=== PATIENT | female | born 2005 | race Caucasian/White ===

== ENCOUNTER 2025-02-17 06:03 | Outpatient (REF) | payer BC, SELFPAY ==
--- NOTE | ~2025-02-17 | US_ITS ---
EXAMINATION: US PELVIS CLINICAL INFORMATION: Check IUD COMPARISON: None available. TECHNIQUE: Ultrasound of the pelvis is performed using both transabdominal and transvaginal transducers along with Doppler. Transvaginal imaging is performed due to inadequate visualization transabdominally. FINDINGS: Uterus: The uterus is anteverted and measures 6.1 x 2.8 x 4.4 cm. The endometrium is not well-visualized. There is an IUD in the uterus. The right arm of the IUD appears to be angled downwards for inferiorly within the endometrium. The uterus is smooth in contour and has normal myometrial echogenicity. No visible fibroid. Adnexa: Both ovaries are visualized. There is normal color flow to the adnexa. There is no ovarian torsion. There is no pelvic ascites or fluid collection. Right ovary measures 3.6 x 2 x 2.2 cm. Left ovary measures 2.8 x 2.1 x 2.2 cm. US/US pelvic and transvaginal IMPRESSION: The endometrium is not well-visualized. There is an IUD in the uterus. The right arm of the IUD appears to be angled downwards or inferiorly within the endometrium. Electronically signed by: Velia Hamlin MD 02/17/2025 01:49 PM EDT
--- OUTSIDE RECORDS SUMMARY | 2025-02-17 06:05 | XMS_ITS | Clinical Summary ---
Author Organization [facility] Address [address] [place] [address] Care Team Providers Care Police Detention Attendant Name Role Phone Nithya Hidalgo MD Primary Care Provider + [phone] Nithya Hidalgo MD Unavailable [phone] Allergies No known active allergies Medications Multiple Vitamins Tab 0 5 Active Tretinoin Microsphere (Retin-A Micro Pump) 0.08 % Gel 0 1 Active Clindamycin Phos-Benzoyl Perox (Onexton) 1.2-3.75 % Gel apply nightly to affected areas 1 1 2 Active Junel FE .10/10 1.5-30 MG-MCG per tablet TAKE 1 TABLET BY MOUTH ONCE A DAY DIRECTED 112 tablet 5 Active Active Problems Problem Noted Date Diagnosed Date Patent foramen ovale (HHS) 11/26/2023 Overview (11/26/2023): See 05/26/2005 Cardiology note Weight loss 01/17/2022 Overview (06/17/2023): Impression - [id number]: I have reviewed with Cata that her BMI has dropped from 31%ile to 11%ile with an actual weight loss of 5 lbs since July at an age when she should still be gaining weight due to increasing bone density etc. I am concerned that her quest to eat a healthy diet may be too extreme for the amount of exercise she is getting and have reviewed this with her. She denies any eating disordered behaviors . I would like to see her again in 3 months to make sure that her weight has stabilized. Impression - [id number]: Down 4 pounds in last half a year. Denies any restrictive eating habits or inducing vomiting, etc. ; She did join a gym in the beginning of the year. Of note, was seen previously for a weight check dur to weight loss at the visit prior to that, and her weight had gone back up.; Discussed making sure she's getting enough calories now that she's working out more. ; Cata will be away at school soon and agreed to go to health services there a couple of times in beginning of the year for a weight check and have them fax me the results. Acne 01/15/2020 Overview (06/17/2023): Impression - [id number]: Risks and benefits of going on the oral contraceptive pill were reviewed with test and her mother. They would like to proceed. Will prescribe Junel 1.10/10 Impression - [id number]: ontrolled with current regimen of OCP, onexton and retin A. Will continue to be managed by dermatology Vegetarian diet 01/01/2018 Overview (06/17/2023): Impression - [id number]: She reports that she has adequate protein intake on her diet with nuts, beans and tofu. Resolved Problems Problem Noted Date Diagnosed Date Resolved Date Cough 02/20/2022 12/19/2023 Encounter for immunization 01/14/2021 0 12/19/2023 Encounters Date Type Department Care Team Description 01/06/2025 Results Follow-Up [facility] [address] [place] [phone] Maddi Church MD LIPID PANEL WITH REFLEX TO DIRECT LDL, CBC INCLUDES DIFFERENTIAL AND PLATELET COUNT, IRON PROFILE (IRON/TIBC), SERUM, Additional followed-up results: 4 01/05/2025 Orders Only [address] [phone] Raquel Hogue DO 12/18/2024 8:20 AM EDT CPE - Comprehensive Physical Exam [address] [place] [phone] Raquel Hogue DO Routine history and physical examination of adult (Primary Dx); Encounter for behavioral health screening; Screening for depression; Need for lipid screening; Strict vegetarian diet; Low energy; Patent foramen ovale (HHS) from Last 3 Months Immunizations Immunization Administration Dates Next Due COVID-19, mRNA (Pfizer Pre F all 2022) Monovalent, 30 mcg/0.3 ml 05/05/2021,10/02/2020,09/07/2020 Covid-19, mRNA (Pfizer Comir rigoberto) Seasonal, 30 mcg/0.3 mL (12+) 04/28/2024 Covid-19, mRNA (Pfizer Pre F all 2022) Bivalent, 30 mcg/0.3 ml randi-sucrose (12+) dose 04/26/2022 DTAP-IPV 08/26/2009 DTaP 02/08/2006, 5,2004,07/20 HIB (PRP-T) 2004,2004,2004 HPV9 (Gardasil 9) 01/01/2018,01/01/2017 Hep A (adult) 10/10/2022 Hep A (pedi) 01/01/2018 Hep A - 01/01/2017 Hep B (adult) 2004,2004,2004 Hib (PRP-OMP) 11/23/2005 IPV 02/08/2006,2004,2004 Influenza,injectable,quad,Prsrv Fr 03/21,04/26/2022,01/28/2020,01/27,02/20/2019,02/01/2018 Influenza,live,intranasal,quad 01/26/2014 Influenza,split(incl.purifie d surface antigen) 04/11/2007,03/10/2006,05/19/2005,03/27 MMR 11/04/2009,06/16/2005 Meningococcal ACWY (Menactra) 01/14/2021, 016 Meningococcal B (Bexsero) 12/14/2022,10/19/2022 PCV-7 11/23/2005, 5,2004,08/03 PPD/TST (Tuberculin Skin Test) 10/01/2020,2020 State H1N1 Vaccine,injection 11/04/2009,03/24/20 09 Tdap 12/31/2015 Varicella 08/11/2008,10/25/2005 influenza,seasonal,trivalent ,PF (Fluzone, Fluarix, Flulaval) 04/28/2024 Family History Medical History Relation Name Comments bladder cancer Sister Relation Name Status Comments Sister Social History Tobacco Use Types Packs/Day Years Used Date Smoking Tobacco: Unknown Tobacco Cessation:Counseling Given: Not Answered Comments:Smoking Status:No current tobacco use PHQ-2 Answer Date Recorded PHQ-2 Score 0 12/18/2024 PHQ-9 Answer Date Recorded Patient Health Questionnaire-9 Score 0 12/18/2024 Comments Unknown Sex and Gender Information Value Date Recorded Sex Assigned at Female 12/19/2023 12:28 PM EDT Legal Sex Female 3:31 PM EDT Gender Identity Female 12/19/2023 12:28 PM EDT Sexual Orientation Straight 12/19/2023 12 :28 PM EDT Last Filed Vital Signs Vital Sign Reading Time Taken Comments Blood Pressure 106/68 12/18/2024 8:35 AM EDT Pulse 88 12/18/2024 8:35 AM EDT Temperature 36.6 C (97.8 F) 12/19/2023 12:29 PM EDT Respiratory Rate 18 12/18/2024 8:35 AM EDT Oxygen Saturation 98% 12/19/2023 12:29 PM EDT Inhaled Oxygen Concentration - - Weight 48.8 kg (107 lb 9.6 oz) 12/18/2024 8:35 A M EDT Height 160.7 cm (5' 3.25 ) 12/18/2024 8:35 AM ED T Body Mass Index 18.91 12/18/2024 8:35 AM EDT Plan of Treatment Upcoming Encounters Date Type Department Care Team (Late st Contact Info) Description 12/21/2025 8:40 AM EDT CPE - Comprehensive Physical Exam [facility] [address] [phone] Nithya Hidalgo MD [address] [place] [address] 21yr Health Maintenance Due Date Last Done Comments Hepatitis C Screening 2004 Chlamydia 12/18/2024 12/19/2023, 07/2022, 01/14/2021, Additional history exists COVID-19 Vaccine ( season) 2025 04/28/2024, 04/26/2022, 05/05/2021, Additional history exists Influenza (#1) 2025 04/28/2024, 12/2022, 04/26/2022, Additional history exists DTaP/Tdap/Td (7 - Td or Tdap) 12/30/2025 12/31/2015, 08/26/2009, 02/08/2006, Additional history exists Zoster (Shingrix) (1 of 2) 2054 08/11/2008, Hep B Completed 2004, 11/2004, 2004 Hib Completed 11/23/2005, 06/2004, 2004, Additional history exists Pneumococcal Aged Out 11/23/2005, 06/2004, 2004, Additional history exists No longer eligible based on patient's age to complete this topic Varicella Completed 08/11/2008, 10/25/2005 Polio (IPV/OPV) Completed 08/26/2009, 01/13, 2004, Additional history exists MMR Completed 11/04/2009, 06/16/2005 HPV Vaccine Completed 01/01/2018, 01/01/2017 PPD Discontinued 10/01/2020, 09/12, 09/29/2020 Meningococcal ACWY Completed 01/14/2021, 12/31/2015 Hep A Completed 10/10/2022, 12/13, 01/01/2017 Meningococcal B Completed 12/14/2022, 10/19/2022 Physical Discontinued 12/18/2024, 11/13, 12/19/2023, Additional history exists LDL Cholesterol Discontinued 01/05/2025, 01/10/2019 Procedures * Due to [place] state law, this organization might not be sharing negative HIV tests. Procedure Name Priority Date/Time Associated Diagnosis Comments VITAMIN B12 (CYANOCOBALAMIN), SERUM Routine 01/05/2025 8:32 AM EDT Strict vegetarian diet Low energy VITAMIN D, 25-HYDROXY, TOTAL, IMMUNOASSAY Routine 01/05/2025 8:32 AM EDT Strict vegetarian diet Low energy THYROID STIMULATING HORMONE (TSH) WITH FREE T4 REFLEX, SERUM Routine 01/05/2025 8:32 AM EDT Low energy FERRITIN Routine 01/05/2025 8:32 AM EDT Strict vegetarian diet Low energy IRON PROFILE (IRON/TIBC), SERUM Routine 01/05/2025 8:32 AM EDT Strict vegetarian diet Low energy CBC INCLUDES DIFFERENTIAL AND PLATELET COUNT Routine 01/05/2025 8:32 AM EDT Strict vegetarian diet Low energy LIPID PANEL WITH REFLEX TO DIRECT LDL Routine 01/05/2025 8:32 AM EDT Need for lipid screening BRIEF EMOTIONAL/BEHAVIORAL STANDARD ASSESSMENT (EG, DEPRESSION, ADHD SCALE), W/ SCORING/DOCUMENT Routine 12/18/2024 8:46 AM EDT Encounter for behavioral health screening Screening for depression INFECTIOUS AGENT, NUCLEIC ACID (DNA/RNA); CHLAMYDIA TRACHOMATIS, AMPLIFIED PROBE Routine 12/19/2023 1:10 PM EDT Encounter for screening for infections with predominantly sexual mode of transmission PPD SKIN TEST Routine 10/01/2020 8:52 AM EDT from Last 3 Months or Most Recently Relevant to Health Maintenance Results * Due to [place] state law, this organization might not be sharing negative HIV tests. * CBC INCLUDES DIFFERENTIAL AND PLATELET COUNT (01/05/2025 8:32 AM EDT) WBC 5.2 3.6 - 11.0 K/uL [facility] RBC 4.1 3.8 - 5.2 M/uL [facility] Hemoglobin 12.9 11.5 - 15.5 g/dL [facility] Hematocrit 39.5 35.0 - 47.0 % [facility] MCV 96 80 - 100 fL [facility] MCH 31 27 - 32 pg [facility] MCHC 33 31 - 35 g/dl [facility] RDW 12.3 12.0 - 16.1 % [facility] MPV 12.6 9.0 - 13.0 fL [facility] PLT 235 150 - 450 K/uL [facility] Neutrophils % 50.5 % [facility] Lymphocytes % 35.6 % [facility] Monocytes % 9.6 % [facility] Eosinophils % 3.1 % [facility] Basophils % 1.0 % [facility] Neutrophils # 2.62 1.50 - 7.80 K/uL [facility] Lymphocytes # 1.85 0.80 - 4.50 K/uL [facility] Monocytes # 0.50 0.20 - 1.00 K/uL [facility] Erythrocytes.nuc leated/100 leukocytes 0.0 0.0 - 1.0 /100WBC [facility] Erythrocytes.nuc leated 0.00 K/uL [facility] 01/05/2025 8:32 AM EDT 01/05/2025 7:37 PM EDT Narrative [facility] - 01/05/2025 8:38 PM EDT Testing performed at [facility], [address] [place] [address], , Benefits Advisor: Rocio Long MD CL#[id number] us Raquel Hogue DO LAB SAME DAY RESULT Final Re sult [facility] [address] [place] [address]. [place] [address], * THYROID STIMULATING HORMONE (TSH) WITH FREE T4 REFLEX, SERUM (01/05/2025 8:32 AM EDT) Pathologist [facility] TSH (Thyrotropin) 1.13 0.50 - 4.80 uIU/ml [facility] 01/05/2025 8:32 AM EDT 01/05/2025 7:37 PM EDT Narrative [facility] - 01/05/2025 8:58 PM EDT Testing performed at [facility], [address] [place] [address], , Benefits Advisor: Rocio Long MD CL#[id number] [facility] Final Result Performing Organization Address [facility] de Phone Number [facility] [address] [place] [address], * IRON PROFILE (IRON/TIBC), SERUM (01/05/2025 8:32 AM EDT) Iron 112 30 - 160 ug/dL [facility] Iron Binding Capacity, Unsaturated 261 110 - 370 ug/dL [facility] Iron binding capacity 373 228 - 428 ug/dl [facility] Iron saturation 30 20 - 55 %sat [facility] 01/05/2025 8:32 AM EDT 01/05/2025 7:37 PM EDT Narrative [facility] - 01/05/2025 8:58 PM EDT Testing performed at [facility], [address] [place] [address], , Benefits Advisor: Rocio Long MD CL#[id number] Raquel Hogue LABORATORY Final Result Performing Organization Address [facility] Co de Phone Number [facility] [address] [place] [address], * FERRITIN (01/05/2025 8:32 AM EDT) Ferritin 53 13 - 150 ng/ml [facility] 01/05/2025 8:32 AM EDT 01/05/2025 7:37 PM EDT Narrative [facility] - 01/05/2025 9:02 PM EDT Testing performed at [facility], [address] [place] [address], , Benefits Advisor: Rocio Long MD CL#[id number] Raquelcara Hogue LABORATORY Final Result Performing Organization Address [facility] Co de Phone Number [facility] [address] [place] [address], * VITAMIN B12 (CYANOCOBALAMIN), SERUM (01/05/2025 8:32 AM EDT) Vitamin B12 (Cobalamins) 306 232 - 1,245 pg/ml [facility] 01/05/2025 8:32 AM EDT 01/05/2025 7:37 PM EDT Narrative [facility] - 01/05/2025 8:58 PM EDT Testing performed at [facility], [address] [place] [address], , Benefits Advisor: Rocio Long MD CL#[id number] Raquel [facility] LABORATORY Final Result Performing Organization Address [facility] Co de Phone Number [facility] [address] [place] [address], * VITAMIN D, 25-HYDROXY, TOTAL, IMMUNOASSAY (01/05/2025 8:32 AM EDT) Vitamin D, 25-OH, Total 32.5 30.0 - 100.0 ng/mL [facility] Comment: Reference Table <20 Deficient 20-30 Insufficient >30 Sufficient >150 Toxic 01/05/2025 8:32 AM EDT 01/05/2025 7:37 PM EDT Narrative [facility] - 01/05/2025 9:16 PM EDT Testing performed at [facility], [address] [place] [address], , Benefits Advisor: Rocio Long MD CL#[id number] Raquel Hogue DO LABORATORY Final Result Performing Organization Address [facility] Co de Phone Number [facility] [address] [place] [address], * (ABNORMAL) LIPID PANEL WITH REFLEX TO DIRECT LDL (01/05/2025 8:32 AM EDT) Cholesterol 174 0 - 199 mg/dL [facility] Triglyceride 117 0 - 150 mg/dL [facility] VLDL Cholesterol 23 5 - 40 mg/dL [facility] HDL Cholesterol 50 50 - 80 mg/dL [facility] LDL Cholesterol 101(H) 0 - 100 mg/dL [facility] Cholesterol Non-HDL 124 0 - 130 mg/dl [facility] CHOL/HDL Ratio 3.5 [facility] 01/05/2025 8:32 AM EDT 01/05/2025 7:37 PM EDT Narrative [facility] - 01/05/2025 8:58 PM EDT FASTING: YES Testing performed at [facility], [address] [place] [address], , Benefits Advisor: Rocio Long MD CL#[id number] Raquel Hogue DO LABORATORY Final Result Performing Organization Address [facility] de Phone Number [facility] [address] [place] [address], * CHLAMYDIA TRACHOMATIS/N. GONORRHOEAE (GC) RNA, TMA (URINE) (12/19/2023 1:10 PM EDT) Pathologist [facility] Chlamydia trachomatis rRNA NOT DETECTED NOT DETECTED [facility] Neisseria Gonorrhoeae rRNA NOT DETECTED NOT DETECTED [facility] 12/19/2023 1:10 PM EDT 12/19/2023 8:10 PM EDT Narrative [facility] - 12/20/2023 8:15 AM EDT Track Order?->No Release result to patient->Immediate Testing Performed at: [facility], [address] [place] [address], , Benefits Advisor: Rocio Long MD CL#[id number] Nithya Hidalgo MD LABORATORY Final Result [facility] [address] [place] [address], * PPD SKIN TEST (10/01/2020 8:52 AM EDT) # OF MM INDURATION (NOT REDNESS) negative PHCT CONVERSIONS 10/01/2020 8:52 AM EDT us Janeth Brady PROCEDURES Final Result PHCT CONVERSIONS from Last 3 Months or Most Recently Relevant to Health Maintenance Insurance PPO Care Teams Police Detention Attendant Relationship Specialty Start Date End Date Nithya Hidalgo MD [address] [place] [address] PCP - General 12/18/22 Nithya Hidalgo MD [address] [place] [address] PCP - Backup PCP Pediatrics 06/14/23
--- OUTSIDE RECORDS SUMMARY | 2025-02-17 06:05 | XMS_ITS | Encounter Summary ---
Author Organization [facility] Address [address] [place] [address] Care Team Providers Care Transportation Design Engineer Name Role Phone Nithya Hidalgo MD Primary Care Provider [phone] Nithya Hidalgo MD Unavailable [phone] Encounter Details Date Type Department Care Team (Late st Contact Info) Description 01/05/2025 Orders Only [address] [phone] Raquel Hogue DO [address] [place] [address], [address] [place] [phone] Social History Tobacco Use Types Packs/Day Years Used Date Smoking Tobacco: Unknown Comments:Smoking Status:No c urrent tobacco use PHQ-2 Answer Date Recorded PHQ-2 Score 0 12/18/2024 PHQ-9 Answer Date Recorded Patient Health Questionnaire-9 Score 0 12/18/2024 Comments Unknown Sex and Gender Information Value Date Recorded Sex Assigned at Female 12/19/2023 12:28 PM EDT Legal Sex Female 3:31 PM EDT Gender Identity Female 12/19/2023 12:28 PM EDT Sexual Orientation Straight 12/19/2023 12 :28 PM EDT documented as of this encounter Plan of Treatment Upcoming Encounters Date Type Department Care Team (Late st Contact Info) Description 12/21/2025 8:40 AM EDT CPE - Comprehensive Physical Exam [address] [place] [phone] Nithya Hidalgo MD [address] [address] 21yr documented as of this encounter Procedures * Due to [place] [employer] law, this organization might not be sharing negative HIV tests. Procedure Name Priority Date/Time Associated Diagnosis Comments CBC INCLUDES DIFFERENTIAL AND PLATELET COUNT Routine 01/05/2025 8:32 AM EDT Strict vegetarian diet Low energy THYROID STIMULATING HORMONE (TSH) WITH FREE T4 REFLEX, SERUM Routine 01/05/2025 8:32 AM EDT Low energy IRON PROFILE (IRON/TIBC), SERUM Routine 01/05/2025 8:32 AM EDT Strict vegetarian diet Low energy FERRITIN Routine 01/05/2025 8:32 AM EDT Strict vegetarian diet Low energy VITAMIN B12 (CYANOCOBALAMIN), SERUM Routine 01/05/2025 8:32 AM EDT Strict vegetarian diet Low energy VITAMIN D, 25-HYDROXY, TOTAL, IMMUNOASSAY Routine 01/05/2025 8:32 AM EDT Strict vegetarian diet Low energy LIPID PANEL WITH REFLEX TO DIRECT LDL Routine 01/05/2025 8:32 AM EDT Need for lipid screening documented in this encounter Results * Due to [place] [employer] law, this organization might not be sharing negative HIV tests. * VITAMIN B12 (CYANOCOBALAMIN), SERUM (01/05/2025 8:32 AM EDT) Vitamin B12 (Cobalamins) 306 232 - 1,245 pg/ml [facility] 01/05/2025 8:32 AM EDT 01/05/2025 7:37 PM EDT Narrative [facility] - 01/05/2025 8:58 PM EDT Testing performed at [facility], [address] [place] [address], , Oracle Technical Architect: Rocio Long MD CL#[id number] Raquel Hogue LABORATORY Final Result Performing Organization Address [facility] Co de Phone Number [facility] [address] [place] [address], * VITAMIN D, 25-HYDROXY, TOTAL, IMMUNOASSAY (01/05/2025 8:32 AM EDT) Vitamin D, 25-OH, Total 32.5 30.0 - 100.0 ng/mL [facility] Comment: Reference Table <20 Deficient 20-30 Insufficient >30 Sufficient >150 Toxic 01/05/2025 8:32 AM EDT 01/05/2025 7:37 PM EDT Narrative [facility] - 01/05/2025 9:16 PM EDT Testing performed at [facility], [address] [place] [address], , Oracle Technical Architect: Rocio Long MD CL#[id number] Raquel Foster LABORATORY Final Result Performing Organization Address [facility] de Phone Number [facility] [address] [place] [address], * THYROID STIMULATING HORMONE (TSH) WITH FREE T4 REFLEX, SERUM (01/05/2025 8:32 AM EDT) TSH (Thyrotropin) 1.13 0.50 - 4.80 uIU/ml [facility] 01/05/2025 8:32 AM EDT 01/05/2025 7:37 PM EDT Narrative [facility] - 01/05/2025 8:58 PM EDT Testing performed at [facility], [address] [place] [address], , Oracle Technical Architect: Rocio Long MD CL#[id number] Raquel Foster LABORATORY Final Result Performing Organization Address [facility] Co de Phone Number [facility] [address] [place] [address], * FERRITIN (01/05/2025 8:32 AM EDT) [facility] Ferritin 53 13 - 150 ng/ml [facility] 01/05/2025 8:32 AM EDT 01/05/2025 7:37 PM EDT Narrative [facility] - 01/05/2025 9:02 PM EDT Testing performed at [facility], [address] [place] [address], , Oracle Technical Architect: Rocio Long MD CL#[id number] Raquelnicol Hogue DO LABORATORY Final Result Performing Organization Address [facility] Co de Phone Number [facility] [address] [place] [address], * IRON PROFILE (IRON/TIBC), SERUM (01/05/2025 8:32 AM EDT) [facility] Iron 112 30 - 160 ug/dL [facility] Iron Binding Capacity, Unsaturated 261 110 - 370 ug/dL [facility] Iron binding capacity 373 228 - 428 ug/dl [facility] Iron saturation 30 20 - 55 %sat [facility] 01/05/2025 8:32 AM EDT 01/05/2025 7:37 PM EDT Narrative [facility] - 01/05/2025 8:58 PM EDT Testing performed at [facility], [address] [place] [address], , Oracle Technical Architect: Rocio Long MD CL#[id number] Raquel Hogue DO LABORATORY Final Result Performing Organization Address [facility] Co de Phone Number [facility] [address] [place] [address], * CBC INCLUDES DIFFERENTIAL AND PLATELET COUNT (01/05/2025 8:32 AM EDT) [facility] WBC 5.2 3.6 - 11.0 K/uL [facility] RBC 4.1 3.8 - 5.2 M/uL [facility] Hemoglobin 12.9 11.5 - 15.5 g/dL [facility] Hematocrit 39.5 35.0 - 47.0 % [facility] MCV 96 80 - 100 fL [facility] MCH 31 27 - 32 pg [facility] MCHC 33 31 - 35 g/dl [facility] RDW 12.3 12.0 - 16.1 % [facility] MPV 12.6 9.0 - 13.0 fL [facility] PLT 235 150 - 450 K/uL [facility] Neutrophils % 50.5 % [facility] Lymphocytes % 35.6 % [facility] Monocytes % 9.6 % [facility] Eosinophils % 3.1 % [facility] Basophils % 1.0 % [facility] Neutrophils # 2.62 1.50 - 7.80 K/uL [facility] Lymphocytes # 1.85 0.80 - 4.50 K/uL [facility] Monocytes # 0.50 0.20 - 1.00 K/uL [facility] Erythrocytes.nuc leated/100 leukocytes 0.0 0.0 - 1.0 /100WBC [facility] Erythrocytes.nuc leated 0.00 K/uL [facility] 01/05/2025 8:32 AM EDT 01/05/2025 7:37 PM EDT Narrative [facility] - 01/05/2025 8:38 PM EDT Testing performed at [facility], [address] [place] [address], , Oracle Technical Architect: Rocio Long MD CL#[id number] us Raquel Hogue DO LAB SAME DAY RESULT Final Re sult [facility] [address] [place] [address]. [place] [address], * (ABNORMAL) LIPID PANEL WITH REFLEX TO DIRECT LDL (01/05/2025 8:32 AM EDT) Cholesterol 174 0 - 199 mg/dL [facility] Triglyceride 117 0 - 150 mg/dL [facility] VLDL Cholesterol 23 5 - 40 mg/dL [facility] HDL Cholesterol 50 50 - 80 mg/dL [facility] LDL Cholesterol 101(H) 0 - 100 mg/dL [facility] Cholesterol Non-HDL 124 0 - 130 mg/dl [facility] CHOL/HDL Ratio 3.[address] [facility] 01/05/2025 8:32 AM EDT 01/05/2025 7:37 PM EDT Narrative [facility] - 01/05/2025 8:58 PM EDT FASTING: YES Testing performed at [facility], [address] [place] [address], , Oracle Technical Architect: Rocio Long MD CL#[id number] us Raquel Hogue DO LABORATORY Final Result [facility] [address] [place] [address]. [place] [address], documented in this encounter Visit Diagnoses Diagnosis Need for lipid screening Screening for lipoid disorders Strict vegetarian diet Low energy documented in this encounter Care Teams Transportation Design Engineer Relationship Specialty Start Date End Date Nithya Hidalgo MD [address] [place] [address] PCP - General 12/18/22 Nithya Hidalgo MD [address] [place] [address] PCP - Backup PCP Pediatrics 06/14/23 documented as of this encounter
--- OUTSIDE RECORDS SUMMARY | 2025-02-17 06:05 | XMS_ITS | Encounter Summary ---
Author Organization [facility] Address [address] [place] [address] Care Team Providers Care Storeroom Clerk Name Role Phone Janeth Brady MD Primary Care Provider [phone] Encounter Details Date Type Department Care Team (Late st Contact Info) Description 06/18/[address] [place] [phone] Margarito Scott MD [address] [place] [address] Encounter for laboratory testing for COVID-19 virus Social History Tobacco Use Types Packs/Day Years Used Date Smoking Tobacco: Never Assessed Comments Unknown Sex and Gender Information Value Date Recorded Sex Assigned at Not on file Legal Sex Female 1:41 PM EDT Gender Identity Not on file Sexual Orientation Not on file documented as of this encounter Plan of Treatment Not on file documented as of this encounter Procedures Procedure Name Priority Date/Time Associated Diagnosis Comments COVID-19 (SARS-COV-2) - SEMA4 LAB Routine 06/18/2020 10:28 AM EST Encounter for laboratory testing for COVID-19 virus [ICD-10-CM] documented in this encounter Results * (ABNORMAL) COVID-19 (SARS-COV-2) (SEMA4) (06/18/2020 10:28 AM EST) COVID-19 RT-PCR DETECTED( A) Not-Detec huy 06/19/2020 8:14 PM EST JADA OBANDO Comment:Interpretation: The viral RNA was detected, consistent with the diagnosis of COVID-19. Correlation with clinical findings is highly recommended.Final report signed by Reed Sheppard, Ph.D., Laboratory DirectorTests performed at [facility] Nasopharyngeal swab / Unknown 06/18/2020 10:28 AM EST 06/18/2020 10:28 AM EST Narrative JADA OBANDO - 06/19/2020 8:14 PM EST Performed by [facility] [address] [place] [address], CLIA# [id number] and [place] License# [id number] us Margarito Scott MD MICROBIOLOGY - GENERAL ORDER LINNETTE Final Result JADA OBANDO documented in this encounter Visit Diagnoses Diagnosis Encounter for laboratory testing for COVID-19 virus documented in this encounter Care Teams Storeroom Clerk Relationship Specialty Start Date End Date Janeth Brady MD PCP - General Pediatric, General 08/04/22 documented as of this encounter
--- OUTSIDE RECORDS SUMMARY | 2025-02-17 06:05 | XMS_ITS | Clinical Summary ---
Author Organization [address] Address [address] [place] [phone] Care Team Providers Care Elevator Mechanic Name Role Phone Janeth Brady MD Primary Care Provider [phone] Allergies No known active allergies Medications BLISOVI FE 1.5/30, 28, 1.5 mg-30 mcg (21)/75 mg (7) tablet TK 1 T PO D UTD 0 Active tretinoin microspheres 0.08 % GlwPIndications: Acne vulgaris Use large pea sized amount to entire face QHS as tolerated. 50 g 3 3 Active clindamycin-harry oyl peroxide (ONEXTON) 1.2 %(1 % base) -3.75 % GelIndications:A cne vulgaris Apply thin layer to face QAM 50 g 6 4 Active tazarotene (ARAZLO) 0.045 % LotnIndications: Acne vulgaris Apply 1 Application topically daily. Apply large pea sized amount to face 2-3 times per week. Advance to every night as tolerated. 45 g 2 4 Active Active Problems No known active problems Family History Medical History Relation Name Comments Cancer, Non-Melanoma Skin Cancer Maternal Grandfather Mental health Maternal Grandfather Relation Name Status Comments Maternal Grandfather Social History Tobacco Use Types Packs/Day Years Used Date Smoking Tobacco: Never Smokeless Tobacco: Never Tobacco Cessation:Counseling Given: Not Answered Alcohol Use Standard Drinks/Week Comments Not Currently 0 (1 standard drink = 0.6 oz pur e alcohol) Comments Unknown Sex and Gender Information Value Date Recorded Sex Assigned at Not on file Legal Sex Female 8:06 PM EST Gender Identity Not on file Sexual Orientation Not on file Plan of Treatment Upcoming Encounters Date Type Department Care Team ([facility] st Contact Info) Description 04/30/2025 10:20 AM EST Follow Up NE Aly Lola [address] [address] [place] Mejía DO [address] [place] [id number] Health Maintenance Due Date Last Done Comments HIV screening 2017 Meningococcal B Vaccine (1 of 2 - Standard) 2020 Hepatitis C screening 2022 Influenza Vaccine Pediatric (#1) 2024 04/28/2024, 03/21/2023, 04/26/2022, Additional history exists Chlamydia screening 12/18/2024 12/19/2023 DTaP/TDaP Vaccines (7 - Td or Tdap) 12/30/2025 12/31/2015, 08/26/2009, 02/08/2006, Additional history exists Tetanus adult (Td q 10,TDAP once) 12/30/2025 12/31/2015, 02/08/2006, 2004, Additional history exists RSV Immunization (1 - 1-dose 75+ series) 2079 Hepatitis B vaccine series Completed 12/06, 2004, 2004 HIB Vaccines Completed 11/23/2005, 06/2004, 2004, Additional history exists Pneumococcal Vaccine (2 - 49 years) Aged Out 11/23/2005, 2004, 2004, Additional history exists No longer eligible based on patient's age to complete this topic Varicella Vaccines Completed 08/11/2008, 10/25/2005 IPV Vaccines Completed 08/26/2009, 01/13, 2004, Additional history exists MMR Vaccines Completed 11/04/2009, 06/16/2005 HPV vaccine series Completed 01/01/2018, 01/01/2017 Meningococcal Vaccine Completed 01/14/2021, 016 Hepatitis A Vaccines Completed 10/10/2022, 01/01/2018, 01/01/2017 Covid-19 vaccine series Completed 04/28/20, 04/26/2022, 05/05/2021, Additional history exists Rotavirus Vaccines Aged Out No longer eligible based on patient's age to complete this topic Insurance [facility] BCBS Care Teams Elevator Mechanic Relationship Specialty Start Date End Date Janeth Brady MD [address] [phone] PCP - General Pediatrics 01/14/20
--- OUTSIDE RECORDS SUMMARY | 2025-02-17 06:05 | XMS_ITS | Clinical Summary ---
Author Organization [facility] Address [address] [place] [address] Care Team Providers Care Glass Cutter Helper Name Role Phone Nithya Hidalgo MD Primary Care Provider Allergies No known active allergies Medications MULTIVITAMIN ORAL Take by mouth. Active norethindrone-e.es tradioL-iron (,) 1.5 mg-30 mcg (21)/75 mg (7) tabletIndications: Encounter for surveillance of contraceptive pills TAKE 1 TABLET BY MOUTH 1 TIME EACH DAY DIRECTED 84 tablet 4 Active Encounters Date Type Department Care Team Description 01/02/2025 1:00 PM EDT Procedure Visit [facility] [place] [address] Winsome Villanueva MD Encounter for IUD insertion (Primary Dx); test negative 12/24/2024 Telephone [facility] [employer] [address] [address] Aparna Witt, TRISTEN question about precedure 12/11/2024 3:00 PM EDT Office Visit [facility] [employer] SAL[employer] ENGINE[employer] [place] [address] [place] [address] Winsome Villanueva MD Women's annual routine gynecological examination (Primary Dx); General counseling and advice on female contraception 12/11/2024 Telephone [facility] [employer] SAL[employer] ENG[employer]ER [address] [address] OlWinsome lowe MD paraguard IUD AUTH from Last 3 Months Family History Medical History Relation Name Comments Breast cancer Paternal Grandmother 60s Bladder Cancer Sister Relation Name Status Comments Father Alive Mother Alive Paternal Grandmother Sister Alive Social History Tobacco Use Types Packs/Day Years Used Date Smoking Tobacco: Never Smokeless Tobacco: Never Tobacco Cessation:Counseling Given: Not Answered Alcohol Use Standard Drinks/Week Comments Yes 0 (1 standard drink = 0.6 oz pur e alcohol) 1 drink/week Exercise Vital Sign Answer Date Recorde d On average, how many days pe r week do you engage in moderate to strenuous exercise (like a brisk walk)? 2 days 12/11/2024 On average, how many minutes do you engage in exercise at this level? 60 min 12/11/2024 Comments No Sex and Gender Information Value Date Recorded Sex Assigned at Not on file Legal Sex Female 2:40 PM EDT Gender Identity Not on file Sexual Orientation Not on file Last Filed Vital Signs Vital Sign Reading Time Taken Comments Blood Pressure 122/58 01/02/2025 1:05 PM EDT Pulse - - Temperature - - Respiratory Rate - - Oxygen Saturation - - Inhaled Oxygen Concentration - - Weight 49 kg (108 lb) 01/02/2025 1:05 PM EDT Height 160 cm (5' 3 ) 01/02/2025 1:05 PM EDT Body Mass Index 19.13 01/02/2025 1:05 PM EDT Plan of Treatment Health Maintenance Due Date Last Done Comments Hepatitis C Screening 2004 Chlamydia Screening 2020 Influenza Vaccine (#1) 2025 , 03/21/2023, 04/26/2022, Additional history exists Annual Physical Exam 12/18/2025 12/18/2024, 12/11/2024, 12/19/2023, Additional history exists Tdap and Td Vaccines Adult 12/30/2025 12/31/2015 Hepatitis B Vaccines Completed 2004, 2004, 2004 HIB Vaccines Completed 11/23/2005, 06/2004, 2004, Additional history exists Pneumococcal Vaccine: Peds (0 to 5 Yrs) and At-Risk Pts (6 to 49 Yrs) Aged Out 11/23/2005, 2004, 2004, Additional history exists No longer eligible based on patient's age to complete this topic Varicella Vaccines Completed 08/11/2008, 10/25/2005 IPV Vaccines Completed 08/26/2009, 01/13, 2004, Additional history exists MMR Vaccines Completed 11/04/2009, 06/16/2005 HPV Vaccines Completed 01/01/2018, 01/01/2017 Hepatitis A Vaccines Completed 10/10/2022, 01/01/2018, 01/01/2017 Meningococcal Vaccine Completed 12/14/2022 , 10/19/2022, 01/14/2021, Additional history exists COVID-19 Vaccine Completed 04/28/2024, , 05/05/2021, Additional history exists RSV <20 Months Aged Out No longer pilar gible based on patient's age to complete this topic Procedures Procedure Name Priority Date/Time Associated Diagnosis Comments POCT , URINE (PC) Routine 01/02/2025 1:30 PM EDT test negative from Last 3 Months Results * POCT (PC) manually resulted (01/02/2025 1:30 PM EDT) Urine , POC Negative Negative Urine 01/02/2025 1:30 PM EDT Winsome Villanueva MD POINT O F CARE TEST ENTER/EDIT ORDERABLES Edited Result - Final from Last 3 Months Insurance [employer] CR[employer] Care Teams Glass Cutter Helper Relationship Specialty Start Date End Date Nithya Hidalgo MD [address] [place] [phone] PCP - General Pediatrics 12/14/22
--- OUTSIDE RECORDS SUMMARY | 2025-02-17 06:05 | XMS_ITS | Encounter Summary ---
Author Organization [facility] Address [address] [place] [address] Care Team Providers Care Improvement Auditor Name Role Phone Nithya Hidalgo MD Primary Care Provider [phone] Reason for Visit * Reason Onset Date Comments paraguard IUD AUTH 12/11/2024 Encounter Details Date Type Department Care Team ([facility] st Contact Info) Description 12/11/2024 Telephone [facility] [place] [address] [place] [address] Winsome Villanueva MD [address] [place] [address] paraguard IUD AUTH Social History Tobacco Use Types Packs/Day Years Used Date Smoking Tobacco: Never Smokeless Tobacco: Never Alcohol Use Standard Drinks/Week Comments Yes 0 [...] on file documented as of this encounter Miscellaneous Notes * Telephone Encounter - Joanne Wooten - 12/11/2024 3:28 PM EDT paraguard IUD AUTH documented in this encounter Plan of Treatment Not on file documented as of this encounter Visit Diagnoses Not on filedocumented in this encounter Care Teams Improvement Auditor Relationship Specialty Start Date End Date Nithya Hidalgo MD [address] [place] [id number] PCP - General Pediatrics 12/14/22 documented as of this encounter
--- OUTSIDE RECORDS SUMMARY | 2025-02-17 06:05 | XMS_ITS ---
Author Name [facility] Organization Unknown Results Test Name/Text Value Interpretation Date Range Source VITAMIN D 25 [place] TOTAL 32.5 ng/mL 01/06/2025 30 - 100 [facility] FERRITIN 53.0 ng/ml 01/06/2025 13 - 150 [facility] VLDL 23.0 mg/dL 01/06/2025 5 - 40 [facility] CHOL/HDL RATIO 3.5 01/06/2025 [facility] LDL 101.0 mg/dL Above high normal 01/06/2025 0 - 100 [facility] Non-HDL CHOLESTEROL 124.0 mg/dl 01/06/2025 0 - 130 [facility] TRIGLYCERIDES 117.0 mg/dL 01/06/2025 0 - 150 [facility] HDL 50.0 mg/dL 01/06/2025 50 - 80 [facility] CHOLESTEROL 174.0 mg/dL 01/06/2025 0 - 199 [facility] VITAMIN B12 306.0 pg/ml 01/06/2025 232 - 1245 [facility] % SATURATION 30.0 %sat 01/06/2025 20 - 55 [facility] TIBC 373.0 ug/dl 01/06/2025 228 - 428 [facility] IRON 112.0 ug/dL 01/06/2025 30 - 160 [facility] UIBC 261.0 ug/dL 01/06/2025 110 - 370 [facility] TSH 1.13 uIU/ml 01/06/2025 0.5 - 4.8 [facility] MPV 12.6 fL 01/06/2025 9 - 13 [facility] BASO% 1.0 % 01/06/2025 [facility] PLT 235.0 K/uL 01/06/2025 150 - 450 [facility] LYMPH% 35.6 % 01/06/2025 [facility] NEUT% 50.5 % 01/06/2025 [facility] MONO% 9.6 % 01/06/2025 [facility] NRBC# 0.0 K/uL 01/06/2025 [facility] MONO# 0.5 K/uL 01/06/2025 0.2 - 1 [facility] HEMATOCRIT 39.5 % 01/06/2025 35 - 47 [facility] LYMPH# 1.85 K/uL 01/06/2025 0.8 - 4.5 [facility] HEMOGLOBIN 12.9 g/dL 01/06/2025 11.5 - 15.5 [facility] NRBC% 0.0 /100WBC 01/06/2025 0 - 1 [facility] MCV 96.0 fL 01/06/2025 80 - 100 [facility] NEUT# 2.62 K/uL 01/06/2025 1.5 - 7.8 [facility] EOS% 3.1 % 01/06/2025 [facility] RDW-CV 12.3 % 01/06/2025 12 - 16.1 [facility] MCHC 33.0 g/dl 01/06/2025 31 - 35 [facility] RBC 4.1 M/uL 01/06/2025 3.8 - 5.2 [facility] MCH 31.0 pg 01/06/2025 27 - 32 [facility] WBC 5.2 K/uL 01/06/2025 3.6 - 11 [facility] History of Medication Use Medication Directions Dispensed Refills Start Date End Date Stat moxifloxacin (VIGAMOX) 0.5 % ophthalmic solution Administer 1 drop to the right eye 3 (three) times a day. 08/04/2022 active June FE .530 1.5-30 MG-MCG tab Take 1 tablet by mouth daily. as directed 08/02/2022 active Onexton 1.2-3.75 % External Gel Onexton 1.2-3.75 % External Gelapply nightly to affected areas Quantity: 1 Refills: 1Staracelis Bejarano Janeth Start : [id number] GM Pump Btl 01/17/2022 completed Retin-A Micro Pump 0.08 % External Gel Retin-A Micro Pump 0.08 % External Gel Refills: 0 CHARGE AUTHORIZER Start : [id number] GM Pump Btl 11/03/2020 completed 1.5-30 MG-MCG Oral Tablet 1.5-30 MG-MCG Oral TabletTAKE 1 TABLET BY MOUTH DAILY DIRECTED Quantity: 84 Refills: 1Staracelis Bejarano Janeth Start : [id number] 01/15/2020 completed Medication Administration not documented Medication Administration not documented completed Problems Problem Status Onset Date Problem Type Date of Resolution Source Conjunctivitis of right eye, unspecified conjunctivitis type active [facility] Immun[facility] Vaccine Date Source Lot Number Status Bexsero Intramuscular Suspen alva Prefilled Syringe 10/19/2022 [facility] completed Pfizer-BioZones COVID-19 Vac-Tr iS 30 MCG/0.3ML Intramuscular Suspension 05/05/2021 [facility] complet ed Meningo (Menactra) 01/14/2021 [facility] [id number] comple huy Pfizer-BioNTech COVID-19 Vac c 30 MCG/0.3ML Intramuscular Suspension 10/02/2020 [facility] complet ed Pfizer-BioNTech COVID-19 Vac c 30 MCG/0.3ML Intramuscular Suspension 09/07/2020 [facility] complet ed Flulaval Quadrivalent 0.5 ML Intramuscular Suspension Prefilled Syringe 01/28/2020 [facility] [id number] com pleted Fluzone Quadrivalent 0.5 ML Intramuscular Suspension 02/20/2019 [facility] [id number] completed Fluzone Quadrivalent 0.5 ML Intramuscular Suspension 02/01/2018 [facility] [id number] completed Gardasil 9 Intramuscular Suspension 01/01/2018 [facility] [id number] completed hepatitis A vaccine, pediatr ic/adolescent dosage, 2 dose schedule 01/01/2018 [facility] [id number] complete d Gardasil 9 Intramuscular Suspension 01/01/2017 [facility] [id number] completed Hepatitis A 01/01/2017 [facility] [id number] completed Menactra Intramuscular Injectable 12/31/2015 [facility] [id number] completed Tdap (Boostrix) 12/31/2015 [facility] [id number] completed Influenza (Nasal) 01/26/2014 [facility] complet ed Influenza A (H1N1) Monoval Vac SUSP 11/04/2009 [facility] completed MMR 11/04/2009 [facility] completed Kinrix Intramuscular Suspension 08/26/2009 [facility] completed Varicella 08/11/2008 [facility] completed Influenza (Split) 04/11/2007 [facility] complet ed Influenza (Split) 03/10/2006 [facility] complet ed DTaP 02/08/2006 [facility] completed Polio 02/08/2006 [facility] completed HIB 11/23/2005 [facility] completed Pneumo (Prevnar) 11/23/2005 [facility] complete d Varicella 10/25/2005 [facility] completed MMR 06/16/2005 [facility] completed Influenza (Split) 05/19/2005 [facility] complet ed Influenza (Split) 03/27/2005 [facility] complet ed HIB (Act / OmniHIB) 2004 [facility] compl eted Pneumo (Prevnar) 2004 [facility] complete d DTaP 2004 [facility] completed Hepatitis B 2004 [facility] completed HIB (Act / OmniHIB) 2004 [facility] compl eted Pneumo (Prevnar) 2004 [facility] complete d DTaP 2004 [facility] completed IPV 2004 [facility] completed HIB (Act / OmniHIB) 2004 [facility] compl eted Pneumo (Prevnar) 2004 [facility] complete d DTaP 2004 [facility] completed IPV 2004 [facility] completed Hepatitis B 2004 [facility] completed Hepatitis B 2004 [facility] completed Encounters Encounter Type Encounter Reason Primary Diagnosis Location Date Ambulatory Encounter for insertion of intrauterine contraceptive device Encounter for insertion of intrauterine contraceptive device [facility] 01/02/2025 Ambulatory [facility] 12/18/2024 Ambulatory Encounter for gynecological examination (general) (routine) without abnormal findings Encounter for gynecological examination (general) (routine) without abnormal findings [facility] 12/11/2024 Ambulatory [facility] 12/19/2023 Ambulatory Encounter for gynecological examination (general) (routine) without abnormal findings Encounter for gynecological examination (general) (routine) without abnormal findings [facility] 06/12/2023 Ambulatory Unspecified conjunctivitis [facility] 08/04/2022 Care Team Organization Name Specialty Phone Email Start Date End Da te [facility] 02/12/2024 [facility] JE[facility]ON[facility] 02/04/2024 [facility] 01/15/2024 [facility] JE[facility] CORONAD[facility] 12/19/2023 [facility] 04/30/202304/13 [facility] 02/26/2023 [facility] Rocky Barriga [facility] 12/17/2022 01/17/2024 [facility] JANETH [facility]ARES Primary [facility] 12/16/2022 12/16/2022 [facility] JANETH SOLARES [facility] 08/04/2022 08/05/19 [facility] JANETH SOL[facility]ES [facility] 08/04/2022
--- OUTSIDE RECORDS SUMMARY | 2025-02-17 06:05 | XMS_ITS | Encounter Summary ---
Author Organization [facility] Address [address] [place] [address] Care Team Providers Care Auto Transmission Mechanic Name Role Phone Nithya Hidalgo MD Primary Care Provider [phone] Nithya Hidalgo MD Unavailable [phone] Encounter Details Date Type Department Care Team (Late st Contact Info) Description 01/06/2025 Results Follow-Up [facility] [address] [place] [phone] Maddi Church MD [address] [place] [phone] LIPID PANEL WITH REFLEX TO DIRECT LDL, CBC INCLUDES DIFFERENTIAL AND PLATELET COUNT, IRON PROFILE (IRON/TIBC), SERUM, Additional followed-up results: 4 Social History Tobacco Use Types Packs/Day Years [...] PM EDT documented as of this encounter Miscellaneous Notes * Result Encounter Note - Tory Almaraz RN - 01/06/2025 10:13 AM EDT Left voicemail for call back * Result Encounter Note - Maddi Church MD - 01/06/2025 9:[address] Hogue's pt know all of the labs look fine documented in this encounter Plan of Treatment Upcoming Encounters Date Type Department Care Team (Late st Contact Info) Description 12/21/2025 8:40 AM EDT CPE - Comprehensive Physical Exam [facility] [address] [place] [phone] Nithya Hidalgo MD [address] [place] [address] 21yr documented as of this encounter Visit Diagnoses Not on filedocumented in this encounter Care Teams Auto Transmission Mechanic Relationship Specialty Start Date End Date Nithya Hidalgo MD [address] [place] [address] PCP - General 12/18/22 Nithya Hidalgo MD [address] [place] [address] PCP - Backup [facility] 06/14/23 documented as of this encounter
--- OUTSIDE RECORDS SUMMARY | 2025-02-17 06:05 | XMS_ITS | Clinical Summary ---
Author Organization [facility] Address [address] [place] [address] Care Team Providers Care Lab Support Service Tech Name Role Phone Janeth Brady MD Primary Care Provider [phone] Allergies No known active allergies Medications 1.5-30 MG-MCG tab Take 1 tablet by mouth daily. as directed 3 Active moxifloxacin (VIGAMOX) 0.5 % ophthalmic solutionIndication s:Conjunctivitis of right eye, unspecified conjunctivitis type Administer 1 drop to the right eye 3 (three) times a day. 3 mL 3 Active Active Problems No known active problems Immunizations Immunization Administration Dates Next Due Covid-19 MRNA Vaccine - Pfizer 12+ (Purple Cap) 10/02/2020,09/07/2020 Social History Tobacco Use Types Packs/Day Years Used Date Smoking Tobacco: Never Assessed Comments Unknown Sex and Gender Information Value Date Recorded Sex Assigned at Not on file Legal Sex Female 1:41 PM EDT Gender Identity Not on file Sexual Orientation Not on file Last Filed Vital Signs Vital Sign Reading Time Taken Comments Blood Pressure 114/68 08/04/2022 3:33 PM EDT Pulse 73 08/04/2022 3:33 PM EDT Temperature 36.7 C (98.1 F) 08/04/2022 3:33 PM EDT Respiratory Rate - - Oxygen Saturation 98% 08/04/2022 3:33 PM EDT Inhaled Oxygen Concentration - - Weight 47.6 kg (105 lb) 08/04/2022 3:33 PM EDT Height - - Body Mass Index - - Plan of Treatment Health Maintenance Due Date Last Done Comments Hepatitis C Virus Screening 2004 HIV Screening 2017 HPV Vaccines (1 - 3-dose series) 2019 DTaP/Tdap/Td Vaccines (1 - Tdap) 2023 Hepatitis B Vaccines (1 of 3 - 19+ 3-dose series) 2023 Influenza Vaccine 12/12/2024 04/26/2022 COVID-19 Vaccine ( - 2024- season) 2025 04/26/2022, 05/05/2021, 10/02/2020, Additional history exists Influenza Vaccine Discontinued 04/26/2022 Pneumococcal Vaccine: Pediatric (0-5 Years) and At-Risk Patients (6 to 49 Years) Aged Out No longer eligible based on patient's age to complete this topic Insurance [place] [employer] [place] [employer] [place] Care Teams Lab Support Service Tech Relationship Specialty Start Date End Date Janeth Brady MD PCP - General Pediatric, General 08/04/22
== END 2025-02-17 06:04 | disposition home or self-care (01) ==
LOC: HO.UMASIMG 06:03
PROVIDERS: Visit Provider Nurse Practitioner Women's Health
DX: Z30.431 Encounter for routine checking of intrauterine contraceptive device (principal)
CPT/HCPCS: 76830; 76856

== ENCOUNTER → 2025-02-17 11:39 | Outpatient (BNV) | payer BC, SELFPAY | PROVIDERS: Visit Provider Radiology Diagnostic Radiology | DX: Z30.431 Encounter for routine checking of intrauterine contraceptive device (principal) | CPT/HCPCS: 76830; 76856 ==

== ENCOUNTER 2025-03-31 07:05 | Outpatient (REF) | payer BC, SELFPAY ==
--- NOTE | ~2025-03-31 | US_ITS ---
EXAMINATION: US PELVIS TRANSABDOMINAL AND TRANSVAGINAL HISTORY: NEW IUD INSERTION, CHECK PLACEMENT COMPARISON: There are no prior studies available for comparison. TECHNIQUE: Transabdominal transvaginal evaluation FINDINGS: Uterus: The uterus is normal in size, measuring 7.6 x 3 x 4.8 cm. Myometrium has a normal echotexture. No focal uterine lesions Endometrium: The endometrial stripe measures 10 mm in thickness. The IUD appears to be appropriately positioned within the endometrial canal. Right ovary: The right ovary measures 4.7 x 2.5 x 2.4 cm. Volume 14.9 mL . A 2.4 cm simple cyst. Left ovary: The left ovary measures 3. 2 x 2 by 1.7 cm. Volume 5.5 mL The left ovary is normal in size and echotexture. Pelvic fluid: none. US/US pelvic and transvaginal IMPRESSION: 1. IUD appears to be appropriately positioned within the endometrial canal. 2. A 2.4 cm simple cyst in the right ovary. Findings are overwhelmingly likely to represent a normal ovarian follicle. No follow-up imaging recommended. Electronically signed by: Sarwat Arellano MD 04/01/2025 11:49 AM [facility]
== END 2025-03-31 07:06 | disposition home or self-care (01) ==
LOC: HO.UMASIMG 07:05
PROVIDERS: Visit Provider Nurse Practitioner Women's Health
DX: Z30.433 Encounter for removal and reinsertion of intrauterine contraceptive device (principal)
CPT/HCPCS: 76830; 76856

== ENCOUNTER → 2025-03-31 14:00 | Outpatient (BNV) | payer BC, SELFPAY | PROVIDERS: Visit Provider Radiology Diagnostic Ultrasound | DX: N83.291 Other ovarian cyst, right side (principal); Z30.431 Encounter for routine checking of intrauterine contraceptive device | CPT/HCPCS: 76830; 76856 ==